=== PATIENT | male | born 1975 | race Caucasian/White ===

== ENCOUNTER 2016-10-20 21:11 | Emergency (ER) | payer SELFPAY ==
[~2016-10-20] VITALS: Ht 185.4 cm; Wt 92.0 kg
[2016-10-20 21:14] VITALS: BP 135/98; PULSE 68; RESP 24; TEMP 98.1; O2SAT 99
[2016-10-20] MEDS ORDERED: CYCL1TAB29 PO (21:33)
[2016-10-20] MEDS ORDERED: HYDR-3583 PO (21:33)
[2016-10-20] MEDS ORDERED: KETOROLAC TROMETHAMINE 60 MG/2 ML (IM) VIAL IM ONE (21:45)
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
--- NOTE | 2016-10-20 22:25 | RADHPO ---
EXAM DATE/TIME: 10/20/2016 22:10 [facility] COMPARISON: No previous studies available for comparison. INDICATIONS : Chest pain. MEDICAL HISTORY : None. SURGICAL HISTORY : None. ENCOUNTER: Initial ACUITY: 4 - 6 days PAIN SCORE: 10/10 LOCATION: Bilateral chest FINDINGS: Frontal views of the chest in inspiration and expiration were performed. The lungs are symmetrically aerated and clear. No evidence of pneumothorax. There is no evidence of mediastinal shift between inspiration and expiration. The cardio-mediastinal contours are unremarkable. Osseous structures are intact. CONCLUSION: No acute disease. Zhen Hernández MD on October 20, 2016 at 22:22 Board Certified Radiologist. This report was verified electronically.
[2016-10-20] MEDS ORDERED: ONDANSETRON HCL 4 MG/2 ML VIAL IV ONE (22:30)
[2016-10-20] MEDS ORDERED: HYDROmorphone HCL PF 1 MG/ML VIAL IVP ONE (22:30)
[2016-10-20] MEDS ORDERED: PERC10TA27 PO (22:51)
[2016-10-20] MEDS ORDERED: IBUP800T23 PO (22:55)
[2016-10-20] MEDS ORDERED: oxyCODONE/ACETAMINOPHEN 10 MG/325 MG TAB PO ONE (23:00)
[2016-10-20] MEDS ORDERED: IBUPROFEN 800 MG TAB PO ONE (23:00)
[2016-10-20 23:47] VITALS: BP 158/74
== END 2016-10-20 23:55 | disposition home or self-care (01) ==
LOC: PHED 21:11
DX: R09.1 Pleurisy (principal); F17.210 Nicotine dependence, cigarettes, uncomplicated
CPT/HCPCS: 71020; 96372; 96374; 96375; 99284; J1170; J1885; J2405

== ENCOUNTER 2018-01-07 12:32 | Emergency (ER) | payer SELFPAY ==
[~2018-01-07 12:32] MED LIST: CYCL10TA PO; HYDR-3583 PO; IBUP1TAB7 PO; PERC10TA27 PO
[2018-01-07 12:40] VITALS: BP 140/81; PULSE 72; RESP 18; TEMP 98; O2SAT 93
[2018-01-07 12:45] VITALS: O2SAT 89
[2018-01-07 12:48] VITALS: O2SAT 92
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
[2018-01-07 13:09] LABS: AUTOMATED NEUTROPHIL # 6.7 TH/MM3 (1.8-7.7); BASOPHIL # 0.2 TH/MM3 (0-0.2); BASOPHIL % 2.2 % (0.0-2.0); EOSINOPHIL # 0.1 TH/MM3 (0-0.4); EOSINOPHIL % 1.1 % (0.0-4.0); HEMATOCRIT 46.4 % (39.0-51.0); HEMOGLOBIN 16.1 GM/DL (13.0-17.0); LYMPHOCYTE # 1.7 TH/MM3 (1.0-4.8); MEAN CELL VOLUME 93.4 FL (80.0-100.0); MEAN CORPUSCULAR HEMOGLOBIN 32.5 PG (27.0-34.0); MEAN CORPUSCULAR HGB CONC 34.7 % (32.0-36.0); MEAN PLATELET VOLUME 8.1 FL (7.0-11.0); MONO % 3.9 % (0.0-8.0); MONOCYTE # 0.4 TH/MM3 (0-0.9); NEUT % 73.8 % (16.0-70.0); PLATELET COUNT 270 TH/MM3 (150-450); RED BLOOD COUNT 4.97 MIL/MM3 (4.50-5.90); RED CELL DISTRIBUTION WIDTH 15.6 % (11.6-17.2); WHITE BLOOD COUNT 9.1 TH/MM3 (4.0-11.0)
[2018-01-07 13:22] LABS: INTERNATIONAL NORMALIZED RATIO 1.1 RATIO; PROTHROMBIN TIME - PATIENT 11.1 SEC (9.8-11.6)
[2018-01-07 13:36] LABS: ALBUMIN 4.1 GM/DL (3.4-5.0); AST (GOT) 150 U/L (15-37); BICARBONATE 28.5 MEQ/L (21.0-32.0); BLOOD UREA NITROGEN 10 MG/DL (7-18); CALCIUM 8.4 MG/DL (8.5-10.1); CHLORIDE 107 MEQ/L (98-107); CREATININE 1.23 MG/DL (0.60-1.30); GLOMERULAR FILTRATION RATE 65 ML/MIN (>89); GLUCOSE,RANDOM 121 MG/DL (74-106); SODIUM (NA) 141 MEQ/L (136-145)
[2018-01-07 13:41] LABS: ALKALINE PHOSPHATASE 78 U/L (45-117); ALT (GPT) 293 U/L (12-78); TOTAL BILIRUBIN ADULT 0.5 MG/DL (0.2-1.0); TOTAL PROTEIN 7.4 GM/DL (6.4-8.2); TROPONIN I LESS THAN 0.02 NG/ML (0.02-0.05)
--- NOTE | 2018-01-07 14:10 | RADRPT ---
EXAM DATE/TIME: 01/07/2018 13:14 [facility] COMPARISON: No previous studies available for comparison. INDICATIONS : Chest pains with shortness of breath. MEDICAL HISTORY : None. SURGICAL HISTORY : None. ENCOUNTER: Initial ACUITY: 1 day PAIN SCORE: 0/10 LOCATION: Bilateral chest FINDINGS: There is infiltrate in the right upper lobe. Left lung is grossly clear. No evidence of effusion. Car diomediastinal contours are satisfactory. CONCLUSION: Right upper lobe infiltrate Angel Le MD on January 07, 2018 at 14:05 Board Certified Radiologist. This report was verified electronically.
[2018-01-07] MEDS ORDERED: MOBI15TA PO (14:41)
[2018-01-07] MEDS ORDERED: ROBA750T PO (14:41)
--- NOTE | 2018-01-08 19:09 | EKG ---
Date Performed: 01/07/2018 Time Performed: 12:48:58 PTAGE: 42 years EKG: Sinus rhythm EARLY REPOLARIZATION BORDERLINE ECG NO PREVIOUS TRACING DOCTOR: Jones Hernández Interpretating Date/Time 01/08/2018 19:07:19
== END 2018-01-07 14:55 | disposition home or self-care (01) ==
LOC: NEPE 12:32
DX: T50.901A Poisoning by unspecified drugs, medicaments and biological substances, accidental (unintentional), initial encounter (principal); S20.211A Contusion of right front wall of thorax, initial encounter; S27.321A Contusion of lung, unilateral, initial encounter; R55 Syncope and collapse; X58.XXXA Exposure to other specified factors, initial encounter; Y92.810 Car as the place of occurrence of the external cause
CPT/HCPCS: 71045; 80053; 80307; 82550; 84484; 85025; 85610; 85730; 93005